=== PATIENT | male | born 1980 | race Hispanic/Latino ===

== ENCOUNTER 2018-09-19 05:35 | Emergency (ER) | payer OTHER ==
--- NOTE | 2018-09-19 05:49 | ED PDOC ---
Arrival/HPI - General Chief Complaint: Dental Pain Time Seen by Provider: 09/19/18 05:41 Historian: Patient - History of Present Illness Narrative History of Present Illness (Text): 09/19/18 05:46 38 year old male with no significant past medical history, presents to the emergency department complaining of left lower molar discomfort. Patient reports his dentist is on vacation and is not available for another 2-3 days. Patient reports he went to the urgent care twice and was given Amoxicillin then Augmentin which has not been subsiding the symptoms. Patient has been taking Motrin for the pain with relief. Patient denies any fever, chills, nausea, vomiting, rash, or any other complaints.Requesting a different antibiotic. Symptom Onset: Gradual Symptom Course: Unchanged Activities at Onset: Light Context: Home Past Medical History - Provider Review Nursing Documentation Reviewed: Yes - Infectious Disease Hx of Infectious Diseases: None - Psychiatric Hx Substance Use: No Family/Social History - Physician Review Nursing Documentation Reviewed: Yes Family/Social History: No Known Family HX Smoking Status: Never Smoked Hx Alcohol Use: Yes Frequency of alcohol use: Socially Hx Substance Use: No Allergies/Home Meds Allergies/Adverse Reactions: Allergies No Known Allergies Allergy (Verified 09/19/18 05:46) Review of Systems - Physician Review All systems were reviewed & negative as marked: Yes - Review of Systems Constitutional: absent: Fevers, Other (Chills) ENT: Other (left lower molar pain) Gastrointestinal: absent: Nausea, Vomiting Skin: absent: Rash Physical Exam Vital Signs Reviewed: Yes Temperature: Afebrile Blood Pressure: Normal Pulse: Regular Respiratory Rate: Normal Appearance: Positive for: Well-Appearing, Non-Toxic, Comfortable Pain Distress: None Mental Status: Positive for: Alert and Oriented X 3 - Systems Exam Head: Present: Atraumatic, Normocephalic Pupils: Present: PERRL Extroacular Muscles: Present: EOMI Conjunctiva: Present: Normal Mouth: Present: Moist Mucous Membranes, Other ((+)Minimal erythema to gingival to the left posterior molar (-) no obvious abscess /mild gingival swelling) Neck: Present: Normal Range of Motion Respiratory/Chest: Present: Clear to Auscultation, Good Air Exchange. No: Respiratory Distress, Accessory Muscle Use Cardiovascular: Present: Regular Rate and Rhythm Neurological: Present: GCS=15, CN II-XII Intact, Speech Normal Skin: Present: Warm, Dry, Normal Color. No: Rashes Psychiatric: Present: Alert, Oriented x 3, Normal Insight, Normal Concentration Medical Decision Making ED Course and Treatment: 09/19/18 05:46 Impression: 38 year old male presents complaining of left lower molar pain. Plan: -- Clindamycin -- disposition Progress Notes: Patient is in no acute distress. I have discussed the plan with the patient, who expresses understanding. Patient in agreement with plan to be discharged home with prescription of Clindamycin. Patient is stable for discharge. Patient was instructed to follow up with dentist or return if symptoms worsen or new concerning symptoms arise. - Scribe Statement The provider has reviewed the documentation as recorded by the Fiona Wyman Provider Scribe Attestation: All medical record entries made by the Fiona were at my direction and personally dictated by me. I have reviewed the chart and agree that the record accurately reflects my personal performance of the history, physical exam, medical decision making, and the department course for this patient. I have also personally directed, reviewed, and agree with the discharge instructions and disposition. Disposition/Present on Arrival - Present on Arrival Any Indicators Present on Arrival: No History of DVT/PE: No History of Uncontrolled Diabetes: No Urinary Catheter: No History of Decub. Ulcer: No History Surgical Site Infection Following: None - Disposition Have Diagnosis and Disposition been Completed?: Yes Diagnosis: Toothache, Tooth abscess Disposition: HOME/ ROUTINE Disposition Time: 05:57 Condition: GOOD Discharge Instructions (ExitCare): Tooth Abscess (DC), Dental Pain (DC) Additional Instructions: Take meds as prescribed/follow up with your dentist this week as scheduled Prescriptions: Clindamycin [Cleocin] 300 mg PO QID #24 cap Referrals: FAMILY PROVIDER,NO [Primary Care Provider] - Follow up with primary Forms: [employer] (Niuean)
[2018-09-19 05:53] VITALS: TEMP 97.8
[2018-09-19 06:18] VITALS: BP 117/62; PULSE 86; RESP 12; O2SAT 100
== END 2018-09-19 06:08 | disposition home or self-care (01) ==
LOC: ED 05:35 → MERGE 05:35 → ED 06:08
DX: K04.7 Periapical abscess without sinus (principal); K08.89 Other specified disorders of teeth and supporting structures